=== PATIENT | female | born 1955 | race Caucasian/White ===

== ENCOUNTER 2016-10-01 22:15 | Emergency (ER) | payer OTHER ==
[~2016-10-01] VITALS: Ht 160 cm; Wt 74.0 kg
[~2016-10-01 22:15] MED LIST: LIDO5DIS35 TD; LISI-357 PO; MELO15TA2 PO; ROBA750T3 PO
[2016-10-01 22:22] VITALS: BP 143/93; PULSE 54; RESP 18; TEMP 98.6; O2SAT 96
--- NOTE | 2016-10-01 22:58 | PD ---
HPI Chief Complaint: Eye Problems/Injury Time Seen by Provider: 22:44 Travel History International Travel<30 days: No Contact w/Intl Traveler<30days: No Traveled to known affect area: No History of Present Illness HPI 61-year-old female here for evaluation of right eye foreign body. The patient was at work at [employer] when she was lifting a bag of product over her head when she believes that some of the product when into her right eye. She was wearing her glasses. She believes it was Diatomaceous Earth which when into her right eye at approximately 9:10 PM. His is a fine pattern recently located. She still believes that some of these substances in her right eye as she has a foreign body sensation in that eye. Her left eye was unscathed. She denies visual disturbances. No burning sensation or pain in her right eye. PFSH Past Medical History Hypertension: Yes Musculoskeletal: Yes (L ankle) ?: Not Menopausal: Yes Social History Alcohol Use: Yes (Occ) Tobacco Use: Yes (Occ) Substance Use: No Allergies-Medications (Allergen,Severity, Reaction): Coded Allergies: No Known Allergies (Unverified , 10/01/16) Reported Meds & Prescriptions Reported Meds & Active Scripts Active Reported Lisinopril 5 Mg Tab 5 Mg PO DAILY Review of Systems Except as stated in HPI: all other systems reviewed are Neg Physical Exam Narrative GENERAL: Well-developed, well-nourished, awake, alert, comfortable, no acute distress. SKIN: Focused skin assessment warm/dry. No rash. HEAD: Atraumatic. Normocephalic. EYES: Pupils equal, round, 3 mm, reactive to light. EOMI. Mild right scleral injection, no drainage, no obvious foreign body when eyelids were everted. Cornea is clear. No proptosis. Fluorsceine stain of the right eye shows no corneal abrasions, negative Shauna sign. Corrected visual acuity shows 20/20 vision in the right eye, 20/20 vision in the left eye, 20/15 vision in bilateral eyes. ENT: Mucous membranes pink and moist. NEUROLOGICAL: Awake and alert. No obvious cranial nerve deficits. Motor grossly within normal limits. Normal speech. PSYCHIATRIC: Appropriate mood and affect; insight and judgment normal. Data Data Last Documented VS Vital Signs Date Time Temp Pulse Resp B/P Pulse Ox O2 Delivery O2 Flow Rate FiO2 10/01/16 22:58 64 18 10/01/16 22:22 98.6 143/93 96 Orders Proparacaine 0.5% Opth Soln (Alcaine 0.5 (10/01/16 23:00) Eye Irrigation (10/01/16 22:49) Fluorescein Strip ([id number]-M-Imwfay A.T.) (10/01/16 23:00) MDM Medical Decision Making Medical Screen Exam Complete: Yes Emergency Medical Condition: Yes Differential Diagnosis Eye foreign body, corneal abrasion Narrative Course See HPI ans PE Dario lens was placed in the right eye and it was flushed with a liter of normal saline. After the eye was flushed, pH was checked and was found to be between 7 and 8 using litmus paper. Patient no longer has foreign body sensation. Internet search of Diatomaceous shows that it is a fine silicate powder which can likely cause local abrasions to the eye. Patient has no signs of corneal abrasion with fluoresceine stain. She is stable for discharge home. I will give her the name of the project engineering director with whom to follow-up with should she have ongoing symptoms. She was informed on when to return to the emergency department. She verbalizes understanding and agreement with plan. Diagnosis Primary Impression: Eye foreign body Qualified Code: T15.91XA - Eye foreign body, right, initial encounter Referrals: Jessica Hazel MD 3 days Loss Prevention Coordinator Additional Instructions: Follow-up with project engineering director Dr. Hazel. Return to the emergency department for worsening symptoms or any other concerns as discussed. Disposition: 01 DISCHARGE HOME Condition: Stable Bryan Fernandes MD Oct 01, 2016 22:58
[2016-10-01] MEDS ORDERED: LISI-519 PO (22:59)
[2016-10-01] MEDS ORDERED: FLUORESCEIN SOD 1 MG STRIP RIGHT EYE ONE (23:00)
[2016-10-01] MEDS ORDERED: PROPARACAINE HCL 0.5% OPHT SOLN 15 ML BTL RIGHT EYE ONE (23:00)
== END 2016-10-01 23:47 | disposition home or self-care (01) ==
LOC: PHEFT 22:15
DX: T15.91XA Foreign body on external eye, part unspecified, right eye, initial encounter (principal); I10 Essential (primary) hypertension; X58.XXXA Exposure to other specified factors, initial encounter; Y92.512 Supermarket, store or market as the place of occurrence of the external cause
CPT/HCPCS: 99284